=== PATIENT | male | born 1990 | race Caucasian/White ===

== ENCOUNTER 2018-02-08 22:50 | Emergency (ER) | payer SELFPAY ==
--- NOTE | 2018-02-09 00:09 | ED Physician Chart ---
ED Chief Complaint/HPI - Patient Information Date Seen:: 02/08/18 Time Seen:: 23:10 Chief Complaint:: Back Pain History of Present Illness:: onset x 3 days of intermittent, sharp, MS type LBP radiating to LLE; no paresthesias, weakness, dizziness, gait changes, or vertigo; pt denies trauma, H /As, neck pain, C/P, SOB, cough, Abd. Pain, A/N/V/D/C, fever, chills, or urinary s/s Allergies:: Allergies Allergy/AdvReac Type Severity Reaction Status Date / Time No Known Allergies Allergy Verified 02/08/18 23:18 Vitals:: Vital Signs - 8 hr 02/08/18 23:10 Temp 98.3 F HR 111 RR 19 BP 148/71 O2 Sat % 96 Historian:: Patient Review:: Nurse's Note Reviewed ED Review of Systems - Review of Systems General/Constitutional: No fever, No chills, No weight loss, No weakness, No diaphoresis, No edema, No loss of appetite Skin: No skin lesions, No rash, No bruising Head: No headache, No light-headedness Eyes: No loss of vision, No pain, No diplopia ENT: No earache, No nasal drainage, No sore throat, No tinnitus Neck: No neck pain, No swelling, No thyromegaly, No stiffness, No mass noted Cardio Vascular: No chest pain, No palpitations, No PND, No orthopnea, No edema Pulmonary: No SOB, No cough, No sputum, No wheezing GI: No nausea, No vomiting, No diarrhea, No pain, No melena, No hematochezia, No constipation, No hematemesis G/U: No dysuria, No frequency, No hematuria, No nacturia Musculoskeletal: No bone or joint pain, Back pain, Muscle pain Endocrine: No polyuria, No polydipsia Psychiatric: No prior psych history, No depression, No anxiety, No suicidal ideation, No homicidal ideation, No auditory hallucination, No visual hallucination Hematopoietic: No bruising, No lymphadenopathy Allergic/Immuno: No urticaria, No angioedema Neurological: No syncope, No focal symptoms, No weakness, No paresthesia, No headache, No seizure, No dizziness, No confusion, No vertigo ED Past Medical History - Past Medical History Obtainable: Yes Past Medical History: No significant medical hx Family History: None Social History: Non Smoker, No Alcohol, No Drug Use, Single Surgical History: None Psychiatricy History: None Medication: Reviewed Family Medical History - Family Member Mother Hx Family Cancer: Yes ED Physical Exam - Physical Examination General/Constitutional: Awake, Well-developed, well-nourished, Alert, No distress, GCS 15, Non-toxic appearing, Ambulatory Head: Atraumatic Eyes: Lids, conjuctiva normal, PERRL, EOMI Skin: Nl inspection, No rash, No skin lesions, No ecchymosis, Well hydrated, No lymphadenopathy ENMT: External ears, nose nl, TM canals nl, Nasal exam nl, Lips, teeth, gums nl , Oropharynx nl, Tonsils nl Neck: Nontender, Full ROM w/o pain, No JVD, No nuchal rigidity, No bruit, No mass, No stridor Other Neck comments:: supple; no meningeal signs; no cervical tenderness; no bruits Respiratory: Nl effort/Exclusion, Clear to Auscultation, No Wheeze/Rhonchi/Rales Cardio Vascular: RRR, No murmur, gallop, rubs, NL S1 S2, Carotid/Femoral/Distal pulses equal bilaterally GI: No tenderness/rebounding/guarding, No organomegaly, No hernia, Normal BS's, Nondistended, No mass/bruits, No McBurney tenderness, Rectum exam nl Other GI comments:: no pulsatile masses : No CVA tenderness Extremities: No tenderness or effusion, Full ROM, normal strength in all extremities, No edema, Normal digits & nails Other Extremities comments:: + L-S bilateral paravertebral soft tissue tenderness; no loss of ROMs; DTRs: 2+ bilaterally; Gait: WNL; good motor, tendon, and sensory functions; good NV functions Neuro/Psych: Alert/oriented, DTR's symmetric, Normal sensory exam, Normal motor strength, Judgement/insight normal, Mood normal, Normal gait, No focal deficits Other Neuro/Psych comments:: no focal signs Misc: Normal back, No paraspinal tenderness ED Septic Shock - . Is Septic Shock (SBP<90, OR Lactate>4 mmol\L) present?: No - <6hrs of presentation: Vital Signs: Vital Signs - 8 hr 02/08/18 23:10 Temp 98.3 F HR 111 RR 19 BP 148/71 O2 Sat % 96 ED Reassessment (Disposition) - Reassessment Reassessment:: pt is asymptomatic upon discharge Reassessment Condition:: Improved - Diagnosis Diagnosis:: Lumbar-Sacral Strain; Back Pain; Sciatica - Aftercare/Follow up Instructions Aftercare/Follow-Up Instructions:: Counseled pt regarding lab results/diagnosis & need follow up, Refer to Discharge Instructions, Counseled pt & family regarding lab results/diagnosis & need follow up - Patient Disposition Discharge/Transfer:: Home Condition at Disposition:: Stable, Improved (RTER prn if existing s/s reoccur and/or get worse and/or any other new s/s occur; ACIs given for all above Dx; refer to Spinal Specialist/Orthopedist/[facility] [address]; F/U with PMD in one day or prn; RTER prn if concerned)
== END 2018-02-09 00:05 | disposition home or self-care (01) ==
LOC: ER 22:58
DX: S33.9XXA Sprain of unspecified parts of lumbar spine and pelvis, initial encounter (principal); M54.40 Lumbago with sciatica, unspecified side; X58.XXXA Exposure to other specified factors, initial encounter; Y93.89 Activity, other specified; Y92.89 Other specified places as the place of occurrence of the external cause; Y99.8 Other external cause status
CPT/HCPCS: 99283; 96372; J1885; Z7502

== ENCOUNTER 2018-02-14 22:15 | Emergency (ER) | payer SELFPAY ==
--- NOTE | 2018-02-14 22:59 | ED Physician Chart ---
ED Chief Complaint/HPI - Patient Information Date Seen:: 02/14/18 Time Seen:: 22:40 Chief Complaint:: left low back History of Present Illness:: Patient's had left low back pain for last 2 months. Pain radiates down to his left foot. Patient's also had intermittent difficulty urinating and constipation. 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 He was not told that the x- rays were abnormal. Allergies:: Allergies Allergy/AdvReac Type Severity Reaction Status Date / Time No Known Allergies Allergy Verified 02/14/18 22:21 Vitals:: Vital Signs - 8 hr 02/14/18 22:20 Temp 98.1 F HR 82 RR 18 BP 140/85 O2 Sat % 99 Historian:: Patient Review:: Nurse's Note Reviewed ED Review of Systems - Review of Systems General/Constitutional: No fever, No chills Skin: No skin lesions Head: No headache Eyes: No loss of vision ENT: No earache Neck: No neck pain Cardio Vascular: No chest pain, No palpitations Pulmonary: No SOB GI: No nausea G/U: No dysuria, No hematuria Musculoskeletal: Bone or joint pain, Back pain Endocrine: No polyuria, No polydipsia Psychiatric: No prior psych history Hematopoietic: No bruising Allergic/Immuno: No urticaria Neurological: No syncope, Other (C physical exam) ED Past Medical History - Past Medical History Past Medical History: No significant medical hx Family History: None Social History: Non Smoker, No Alcohol Surgical History: None Psychiatricy History: None Medication: Reviewed Family Medical History - Family Member Mother History Unknown: Yes Hx Family Cancer: Yes ED Physical Exam - Physical Examination General/Constitutional: Well-developed, well-nourished, Alert, No distress Other Gen/Cons comments:: Patient observed to walk with a limp. Head: Atraumatic Eyes: Lids, conjuctiva normal, PERRL Skin: Nl inspection, No rash, No skin lesions, No ecchymosis, Well hydrated ENMT: External ears, nose nl, TM canals nl, Nasal exam nl, Lips, teeth, gums nl Neck: No nuchal rigidity Respiratory: Nl effort/Exclusion, Clear to Auscultation Cardio Vascular: RRR, No murmur, gallop, rubs, NL S1 S2 GI: No tenderness/rebounding/guarding : No CVA tenderness Other Extremities comments:: Straight leg raising left to 30 and right of 40; strength large toes intact; deep tendon reflexes left knee 2 out of 4 and right knee 3.5 out of 4. Neuro/Psych: Alert/oriented ED Assessment - Assessment General Assessment: Patient needs to be seen in orthopedic clinic. I suggested [facility]. I told him he could call ahead and find out what days the orthopedic outpatient clinic is open. I further suggested getting a copy of his back x- rays from the clinic and taking them with him to his appointment. Patient has a neurological deficit as the right knee deep tendon reflex is much greater than the left. Patient needs an MRI of his low back which should be readily available at [facility]. I suggested taking 2 200 mg ibuprofen 3 times a day. ED Septic Shock - . Is Septic Shock (SBP<90, OR Lactate>4 mmol\L) present?: No - <6hrs of presentation: Vital Signs: Vital Signs - 8 hr 02/14/18 22:20 Temp 98.1 F HR 82 RR 18 BP 140/85 O2 Sat % 99 ED Reassessment (Disposition) - Reassessment Reassessment Condition:: Unchanged - Diagnosis Diagnosis:: Sciatica with neurological deficit - Aftercare/Follow up Instructions Aftercare/Follow-Up Instructions:: Refer to Discharge Instructions - Patient Disposition Discharge/Transfer:: Home Condition at Disposition:: Stable, Unchanged
== END 2018-02-14 23:30 | disposition home or self-care (01) ==
LOC: ER 22:15
DX: M54.32 Sciatica, left side (principal)
CPT/HCPCS: 99283; 96372; J1885; Z7502